=== PATIENT | male | born 2000 | race African-American/Black ===

== ENCOUNTER 2023-12-07 11:44 | Emergency (ER) | payer MEDICAID ==
[~2023-12-07] VITALS: Ht 180.3 cm; Wt 91.2 kg
[2023-12-07 12:05] VITALS: BP 122/88; PULSE 91; RESP 20; TEMP 98.8; O2SAT 98
[2023-12-07] MEDS ORDERED: PROM118S5 PO (12:29)
[2023-12-07] MEDS ORDERED: IBUP-2213 PO (12:29)
[2023-12-07] MEDS ORDERED: SUD30 PO (12:29)
[2023-12-07] MEDS: KETOROLAC 30 MG/ML VIAL IM ONE (13:10)
[2023-12-07 14:36] LABS: FLU A ANTIGEN negative (NEGATIVE); FLU B ANTIGEN NEGATIVE (NEGATIVE)
[2023-12-07] MEDS ORDERED: NIRM1TAB9 PO (16:55)
== END 2023-12-07 13:19 | disposition home or self-care (01) ==
LOC: MED 11:44
DX: U07.1 COVID-19 (principal); B34.9 Viral infection, unspecified; M79.10 Myalgia, unspecified site; J45.909 Unspecified asthma, uncomplicated; Z79.899 Other long term (current) drug therapy
CPT/HCPCS: 87426; 87804; 96372; 99283; J1885